=== PATIENT | male | born 1975 | race Caucasian/White ===

== ENCOUNTER 2023-02-03 10:09 | Day surgery (SDC) | payer OTHER ==
[~2023-02-03 10:09] MED LIST: LACTATED RINGERS 1,000 ML IV SCH; LIDOCAINE 1% (10MG/ML) FOR IV START INTRADERMA PRN
[2023-02-03 10:49] VITALS: TEMP 97.7
[2023-02-03] MEDS ORDERED: PROPOFOL 10 MG/ML 20 ML VIAL IV ONE (10:55)
[2023-02-03] MEDS ORDERED: LIDOCAINE 2% INJ 20 MG/ML (2 ML VIAL) ONE (10:55)
--- NOTE | 2023-02-03 10:59 | P.GSHP ---
History of Present Illness H&P Date: 02/03/23 Chief Complaint: Colon cancer screening 47-year-old male here for colonoscopy. Patient has not had one before. No bowel complaints. No family history of colon cancer. Past Medical History Additional Past Medical History / Comment(s): Routine colonoscopy History of Any Multi-Drug Resistant Organisms: None Reported Past Surgical History: Orthopedic Surgery Additional Past Surgical History / Comment(s): L ankle fracture with surgery. Past Anesthesia/Blood Transfusion Reactions: No Reported Reaction Additional Past Anesthesia/Blood Transfusion Reaction / Comment(s): Pt has only had a spinal Smoking Status: Never smoker - Past Family History Mother Family Medical History: No Reported History Father Family Medical History: No Reported History Medications and Allergies Home Medications Medication Instructions Recorded Confirmed Type No Known Home Medications 01/28/23 02/03/23 History Allergies Allergy/AdvReac Type Severity Reaction Status Date / Time No Known Allergies Allergy Verified 02/03/23 10:33 Surgical - Exam Vital Signs Temp Pulse Resp BP Pulse Ox 97.7 F 73 20 137/89 96 02/03/23 10:48 02/03/23 10:48 02/03/23 10:48 02/03/23 10:48 02/03/23 10:48 Physical exam: General: Well-developed, well-nourished HEENT: Normocephalic, sclerae nonicteric Abdomen: Nontender, nondistended Extremities: No edema Neuro: Alert and oriented Assessment and Plan (1) Colon cancer screening Narrative/Plan: Will proceed with colonoscopy at this time. Current Visit: Yes Status: Acute Code(s): Z12.11 - ENCOUNTER FOR SCREENING FOR MALIGNANT NEOPLASM OF COLON SNOMED Code(s): 391726175
--- NOTE | 2023-02-03 11:18 | P.PCN ---
Date of Procedure: 02/03/23 Procedure(s) Performed: PREOPERATIVE DIAGNOSIS: Colon cancer screening POSTOPERATIVE DIAGNOSIS: Normal exam PROCEDURE: Colonoscopy ANESTHESIA: MAC SURGEON: Herson Hendrickson M.D. SPECIMENS: None ENDOSCOPIC PROCEDURE: The patient was placed on the endoscopy table in the left decubitus position. The Olympus colonoscope was inserted into the anus and passed under direct visualization to the base of the cecum. The appendiceal orifice was visualized. From that point the scope was slowly withdrawn inspecti ng all surfaces carefully. There were no neoplastic inflammatory or polypoid lesions throughout the cecum, ascending, transverse, descending, sigmoid and rectum. There was no visible diverticulosis noted. Digital rectal examination was normal. The patient was taken to the recovery room in stable condition per anesthesia guidelines. RECOMMENDATIONS: Resume diet. Repeat colonoscopy 10 years.
[2023-02-03 11:53] VITALS: BP 110/76; PULSE 77; RESP 20
== END 2023-02-03 11:52 | disposition home or self-care (01) ==
LOC: ORWHC2ENDO 10:09
PROVIDERS: ATTEND Surgery
DX: Z12.11 Encounter for screening for malignant neoplasm of colon (principal); E66.9 Obesity, unspecified; Z98.890 Other specified postprocedural states; Z68.34 Body mass index [BMI] 34.0-34.9, adult
CPT/HCPCS: 45378; J2704; J2001

== ENCOUNTER 2024-10-08 21:28 | Emergency (ER) | payer OTHER ==
[2024-10-08 21:35] VITALS: RESP 18
--- NOTE | 2024-10-08 21:58 | ED ---
General Adult HPI - General Chief complaint: Chest Pain Stated complaint: Chest burning Time Seen by Provider: 10/08/24 21:37 Source: patient, RN notes reviewed Mode of arrival: ambulatory Limitations: no limitations - History of Present Illness Initial comments: This is a 49-year-old male with no reported medical conditions presenting to emergency department for complaints of intermittent left-sided chest burning over the past week. Patient states that when he begins to think about having a burning sensation in his chest that when this arises overnight he will think about the pain that will radiate down into his left arm. He states that he had 1 episode of associated nausea. He denies associated difficulty breathing, diaphoresis, heart palpitations, fevers, chills, nausea or vomiting. Denies history of DVT, PE, recent prolonged travel, recent surgeries, calf swelling or pain. Denies history of hypertension, hyperlipidemia, diabetes, smoking history. - Related Data Home Medications Medication Instructions Recorded Confirmed No Known Home Medications 01/28/23 02/03/23 Allergies Allergy/AdvReac Type Severity Reaction Status Date / Time No Known Allergies Allergy Verified 10/08/24 21:35 Review of Systems ROS Statement: Those systems with pertinent positive or pertinent negative responses have been documented in the HPI. ROS Other: All systems not noted in ROS Statement are negative. Past Medical History Additional Past Medical History / Comment(s): Routine colonoscopy History of Any Multi-Drug Resistant Organisms: None Reported Past Surgical History: Orthopedic Surgery Additional Past Surgical History / Comment(s): L ankle fracture with surgery. Past Anesthesia/Blood Transfusion Reactions: No Reported Reaction Additional Past Anesthesia/Blood Transfusion Reaction / Comment(s): Pt has only had a spinal Past Psychological History: No Psychological Hx Reported Smoking Status: Never smoker Past Alcohol Use History: Occasional Past Drug Use History: None Reported - Past Family History Mother Family Medical History: No Reported History Father Family Medical History: No Reported History General Exam Limitations: no limitations General appearance: alert, in no apparent distress, anxious Eye exam: Present: normal appearance, PERRL, EOMI. Absent: scleral icterus, conjunctival injection, periorbital swelling ENT exam: Present: normal exam, mucous membranes moist Neck exam: Present: normal inspection. Absent: tenderness, meningismus, lymphadenopathy Respiratory exam: Present: normal lung sounds bilaterally. Absent: respiratory distress, wheezes, rales, rhonchi, stridor Cardiovascular Exam: Present: regular rate, normal rhythm, normal heart sounds. Absent: systolic murmur, diastolic murmur, rubs, gallop, clicks GI/Abdominal exam: Present: soft, normal bowel sounds. Absent: distended, tenderness, guarding, rebound, rigid Extremities exam: Present: normal inspection, full ROM, normal capillary refill. Absent: tenderness, pedal edema, joint swelling, calf tenderness Back exam: Present: normal inspection Course Vital Signs 10/08/24 10/08/24 10/09/24 21:32 23:27 00:14 Temperature 98.0 F 98.2 F Pulse Rate 92 79 96 Respiratory 18 18 18 Rate Blood Pressure 182/105 159/101 149/104 O2 Sat by Pulse 96 98 97 Oximetry Medical Decision Making - Medical Decision Making Was pt. sent in by a medical professional or institution (, PA, POWER SYSTEMS ENGINEER, urgent care, hospital, or detention...) When possible be specific @ -No Did you speak to anyone other than the patient for history (EMS, parent, family, police, friend...)? What history was obtained from this source @ -No Did you review nursing and triage notes (agree or disagree)? Why? @ -I reviewed and agree with nursing and triage notes Were old charts reviewed (outside hosp., previous admission, EMS record, old EKG, old radiological studies, urgent care reports/EKG's, detention records)? Report findings @ -No old charts were reviewed Differential Diagnosis (chest pain, altered mental status, abdominal pain women, abdominal pain men, vaginal bleeding, weakness, fever, dyspnea, syncope, headache, dizziness, GI bleed, back pain, seizure, CVA, palpatations, mental health, musculoskeletal)? @ -Differential Chest Pain: Stable Angina, Unstable Angina, STEMI, NSTEMI Aortic Dissection, Pneumothorax, Musculoskeletal, Esophageal Spasm GERD, Cholecystitis, Pancreatitis, Zoster, this is not meant to be an all-inclusive list. EKG interpreted by me (3pts min.). @ -Completed at 2144 sinus rhythm with a ventricular rate of 89, CO interval 156, QRS 121, QT 358, QTc 405. X-rays interpreted by me (1pt min.). @ -None done CT interpreted by me (1pt min.). @ -None done U/S interpreted by me (1pt. min.). @ -None done What testing was considered but not performed or refused? (CT, X-rays, U/S, labs)? Why? @ -None What meds were considered but not given or refused? Why? @ -None Did you discuss the management of the patient with other professionals (professionals i.e. , PA, POWER SYSTEMS ENGINEER, lab, RT, psych nurse, social work supervisor, assistant bookkeeper, teacher, plant protection officer, manager of case management)? Give summary @ -No Was smoking cessation discussed for >3mins.? @ -No Was critical care preformed (if so, how long)? @ -No Were there social determinants of health that impacted care today? How? (Homelessness, low income, unemployed, alcoholism, drug addiction, transportation, low edu. Level, literacy, decrease access to med. care, [facility], rehab)? @ -No Was there de-escalation of care discussed even if they declined (Discuss DNR or withdrawal of care, Hospice)? DNR status @ -No What co-morbidities impacted this encounter? (DM, HTN, Smoking, COPD, CAD, Cancer, CVA, ARF, Chemo, Hep., AIDS, mental health diagnosis, sleep apnea, morbid obesity)? @ -None Was patient admitted / discharged? Hospital course, mention meds given and route, prescriptions, significant lab abnormalities, going to OR and other per tinent info. @ -Discharge. 49-year-old male presenting to the emergency department with c omplaints of chest burning. Patient is hypertensive on arrival with a blood pressure 182/105 he is mildly anxious as well. Cardiopulmonary examination is unremarkable. No signs of peripheral edema. Patient divided with dose of aspirin. EKG is in sinus rhythm. Laboratory testing is unremarkable including CBC, CMP, coagulation and troponin. Chest x-ray is unremarkable. Patient has a low heart score and is stable for discharge outpatient with primary care follow- up. Return parameters discussed. Case discussed with Dr. Arambula Undiagnosed new problem with uncertain prognosis? @ -No Drug Therapy requiring intensive monitoring for toxicity (Heparin, Nitro, Insulin, Cardizem)? @ -No Were any procedures done? @ -No Diagnosis/symptom? @ -chest pain Acute, or Chronic, or Acute on Chronic? @ -acute Uncomplicated (without systemic symptoms) or Complicated (systemic symptoms)? @ -uncomplicated Side effects of treatment? @ -No Exacerbation, Progression, or Severe Exacerbation? @ -No Poses a threat to life or bodily function? How? (Chest pain, [place], [place], pneumonia, PE, COPD, DKA, ARF, appy, cholecystitis, CVA, Diverticulitis, Homicidal, Suicidal, threat to staff... and all critical care pts) @ -No - Lab Data Result diagrams: 10/08/24 22:34 10/08/24 22:34 Lab Results 10/08/24 10/08/24 10/08/24 Range/Units 22:34 22:34 22:34 WBC 6.91 (4.50-10.00) 10*3/uL RBC 5.14 (4.40-5.60) 10*6/uL Hgb 16.9 (13.0-17.0) g/dL Hct 46.0 (39.6-50.0) % MCV 89.5 (80.0-97.0) fL MCH 32.9 H (27.0-32.0) pg MCHC 36.7 (32.0-37.0) g/dL Plt Count 189 (140-440) 10*3/uL MPV 10.5 (9.5-12.2) fL Immature Gran % (Auto) 0.3 % Neutrophils % 65.5 % Lymphocytes % 24.3 % Monocytes % 8.2 % Eosinophils % 1.3 % Basophils % 0.4 % Immature Gran # 0.02 (0.00-0.04) 10*3/uL Neutrophils # 4.52 (1.80-7.70) 10*3/uL Lymphocytes # 1.68 (0.90-5.00) 10*3/uL Monocytes # 0.57 (0.20-1.00) 10*3/uL Eosinophils # 0.09 (0.04-0.35) 10*3/uL Basophils # 0.03 (0.00-0.10) 10*3/uL PT 11.2 (10.0-12.5) sec INR 1.0 (<1.2) APTT 25.4 (22.0-30.0) sec Sodium 138 (137-145) mmol/L Potassium 3.9 (3.5-5.1) mmol/L Chloride 103 (98-107) mmol/L Carbon Dioxide 23 (22-30) mmol/L Anion Gap 12 mmol/L BUN 19 (9-20) mg/dL Creatinine 0.84 (0.66-1.25) mg/dL Est GFR (CKD-EPI)AfAm >90 (>60 ml/min/1.73 sqM) Est GFR (CKD-EPI)NonAf >90 (>60 ml/min/1.73 sqM) Glucose 95 (74-99) mg/dL Calcium 9.6 (8.4-10.2) mg/dL Magnesium 2.2 (1.6-2.3) mg/dL Total Bilirubin 0.7 (0.2-1.3) mg/dL AST 28 (17-59) U/L ALT 35 (4-49) U/L Alkaline Phosphatase 58 (38-126) U/L Troponin I (0.000-0.034) ng/mL Total Protein 7.8 (6.3-8.2) g/dL Albumin 4.8 (3.5-5.0) g/dL Lipase 91 (23-300) U/L 10/08/24 Range/Units 22:34 WBC (4.50-10.00) 10*3/uL RBC (4.40-5.60) 10*6/uL Hgb (13.0-17.0) g/dL Hct (39.6-50.0) % MCV (80.0-97.0) fL MCH (27.0-32.0) pg MCHC (32.0-37.0) g/dL Plt Count (140-440) 10*3/uL MPV (9.5-12.2) fL Immature Gran % (Auto) % Neutrophils % % Lymphocytes % % Monocytes % % Eosinophils % % Basophils % % Immature Gran # (0.00-0.04) 10*3/uL Neutrophils # (1.80-7.70) 10*3/uL Lymphocytes # (0.90-5.00) 10*3/uL Monocytes # (0.20-1.00) 10*3/uL Eosinophils # (0.04-0.35) 10*3/uL Basophils # (0.00-0.10) 10*3/uL PT (10.0-12.5) sec INR (<1.2) APTT (22.0-30.0) sec Sodium (137-145) mmol/L Potassium (3.5-5.1) mmol/L Chloride (98-107) mmol/L Carbon Dioxide (22-30) mmol/L Anion Gap mmol/L BUN (9-20) mg/dL Creatinine (0.66-1.25) mg/dL Est GFR (CKD-EPI)AfAm (>60 ml/min/1.73 sqM) Est GFR (CKD-EPI)NonAf (>60 ml/min/1.73 sqM) Glucose (74-99) mg/dL Calcium (8.4-10.2) mg/dL Magnesium (1.6-2.3) mg/dL Total Bilirubin (0.2-1.3) mg/dL AST (17-59) U/L ALT (4-49) U/L Alkaline Phosphatase (38-126) U/L Troponin I <0.012 (0.000-0.034) ng/mL Total Protein (6.3-8.2) g/dL Albumin (3.5-5.0) g/dL Lipase (23-300) U/L Disposition Clinical Impression: Chest pain Disposition: HOME SELF-CARE Condition: Stable Instructions (If sedation given, give patient instructions): Chest Pain (ED) Additional Instructions: Please return to the Emergency Department if symptoms worsen or any other concerns. Is patient prescribed a controlled substance at d/c from ED?: No Referrals: Laura Power DO [Primary Care Provider] - 1-2 days Time of Disposition: 23:59
[2024-10-08 22:53] LABS: Basophils # (A) 0.03 10*3/uL (0.00-0.10); Basophils % (A) 0.4 %; Eosinophils # (A) 0.09 10*3/uL (0.04-0.35); Eosinophils % (A) 1.3 %; HGB 16.9 g/dL (13.0-17.0); Lymphocytes # (A) 1.68 10*3/uL (0.90-5.00); Lymphocytes % (A) 24.3 %; MCH 32.9 pg (27.0-32.0); MCHC 36.7 g/dL (32.0-37.0); MCV 89.5 fL (80.0-97.0); Mean Platelet Volume 10.5 fL (9.5-12.2); Monocytes # (A) 0.57 10*3/uL (0.20-1.00); Monocytes % (A) 8.2 %; Neutrophils # (A) 4.52 10*3/uL (1.80-7.70); Neutrophils % (A) 65.5 %; Platelet Count 189 10*3/uL (140-440); RBC 5.14 10*6/uL (4.40-5.60); RDW 11.9 % (11.5-14.5); WBC 6.91 10*3/uL (4.50-10.00)
[2024-10-08 23:05] LABS: ALT 35 U/L (4-49); AST 28 U/L (17-59); African American GFR (CKD) >90 (>60 ml/min/1.73 sqM); Albumin 4.8 g/dL (3.5-5.0); Alkaline Phosphatase 58 U/L (38-126); Anion Gap 12 mmol/L; Blood Urea Nitrogen 19 mg/dL (9-20); Calcium 9.6 mg/dL (8.4-10.2); Carbon Dioxide 23 mmol/L (22-30); Chloride 103 mmol/L (98-107); Glucose 95 mg/dL (74-99); Lipase 91 U/L (23-300); Magnesium 2.2 mg/dL (1.6-2.3); Non-African American GFR(CKD) >90 (>60 ml/min/1.73 sqM); Potassium 3.9 mmol/L (3.5-5.1); Sodium 138 mmol/L (137-145); Total Bilirubin 0.7 mg/dL (0.2-1.3); Total Protein 7.8 g/dL (6.3-8.2)
[2024-10-08] MEDS: ASPIRIN 81 MG PO STA (23:11)
[2024-10-08 23:23] LABS: Partial Thromboplastin Time 25.4 sec (22.0-30.0); Prothrombin Time 11.2 sec (10.0-12.5)
[2024-10-09 00:19] VITALS: BP 149/104; PULSE 96; TEMP 98.2
--- NOTE | 2024-10-09 00:51 | XR ---
EXAM: XR Chest, 2 Views CLINICAL HISTORY: XR Reason: Chest Pain TECHNIQUE: Frontal and lateral views of the chest. COMPARISON: No relevant prior studies available. FINDINGS: Lungs: The lungs are underinflated with bronchovascular crowding, exaggerated by large body habitus. No acute focal infiltrate or consolidation is seen. Pleural space: Unremarkable. No pneumothorax. Heart: Unremarkable. No cardiomegaly. Mediastinum: Unremarkable. Normal mediastinal contour. Bones/joints: Unremarkable. No acute fracture. Upper abdomen: Unremarkable as visualized. No pneumoperitoneum under the diaphragm. IMPRESSION: The lungs are underinflated with bronchovascular crowding, exaggerated by large body habitus. No acute focal infiltrate or consolidation is seen.
== END 2024-10-09 00:23 | disposition home or self-care (01) ==
LOC: EC 21:28
DX: R07.9 Chest pain, unspecified (principal)
CPT/HCPCS: 36415; 71046; 80053; 83690; 83735; 84484; 85025; 85610; 85730; 93005; 99285